=== PATIENT | female | born 1985 | race African-American/Black ===

== ENCOUNTER 2016-04-06 18:25 | Emergency (ER) | payer OTHER ==
[~2016-04-06] VITALS: Ht 175.3 cm; Wt 105.9 kg
[~2016-04-06 18:25] MED LIST: BCPILLS PO; ONDA4TAB10 SL; PRVHFAIN INH
[2016-04-06 18:34] VITALS: TEMP 37; Ht 175.3 cm; Wt 105.9 kg
--- NOTE | 2016-04-06 19:21 | DIAGNOSTIC IMAGING REPORT ---
CT HEAD WITHOUT CONTRAST (CT) CLINICAL HISTORY: Headache status post head trauma COMPARISON STUDY: No previous studies for comparison. TECHNIQUE: Axial CT of the brain is performed from the vertex to the skull base. IV contrast was not administered for this examination. CT DOSE: 687.98 mGy.cm FINDINGS: No intra or extra-axial mass lesions are visualized. There is no CT evidence of acute cortical infarction. There is no evidence of midline shift. There is no acute hemorrhage. No calvarial fractures are visualized. There is no evidence of pathologic ventricular dilatation. There is no evidence of acute sinusitis IMPRESSION: Normal noncontrast head CT. Electronically signed by: Manav Harley M.D. 04/06/2016 7:19 PM Dictated Date/Time: 04/06/2016 7:18 PM
[2016-04-06 19:28] VITALS: BP 137/86; PULSE 75; O2SAT 95
--- NOTE | 2016-04-06 19:29 | EMERGENCY ROOM VISIT NOTE ---
History First contact with patient: 18:38 Chief Complaint: HEAD INJURY (MINOR) Stated Complaint: DIZZY, NAUSEA, HEADACHE History of Present Illness The patient is a 31 year old female who presents to the Emergency Room with complaints of head injury which occurred yesterday when she was participating in [employer]. She states that her legs went out from underneath her and she fell backwards striking her head on the floor. She states that she hit so hard that she bounced up and then her head went back and hit again. She was wearing a helmet. There was no loss of consciousness or short-term memory loss. The patient states that she did not even feel any pain in the area initially. Approximately 1 hour later she started feeling "woozy". She also started getting a slight headache at the base of her head. She also admits to photosensitivity and phono sensitivity. The patient is concerned because when she woke up today she continues to have a slight headache which she rates at a 2 or 3 out of 10. She also feels slightly off balance but the main concern is that she feels nauseated but did not vomit. The patient denies any prior head injuries. The patient denies any neck injury. Review of Systems 10 system review was performed and was negative unless stated otherwise history of present illness. Past Medical/Surgical History Surgical Problems: (1) S/P appendectomy Umbilical hernia Asthma Family History Cancer Diabetes mellitus Hypertension Social History Smoking Status: Never Smoker Alcohol Use: occasionally Marital Status: single Occupation Status: employed Current/Historical Medications Scheduled Control Pills ( Control Pills), 1 TAB PO DAILY Ondasetron Odt (Zofran Odt), 4-8 MG SL Q6H Scheduled PRN Albuterol (Ventolin Hfa), 2 PUFF INH Q6H PRN for Shortness of Breath Allergies Coded Allergies: No Known Allergies (Unverified , 04/06/16) Physical Exam Vital Signs Date Time Temp Pulse Resp B/P Pulse Ox O2 Delivery O2 Flow Rate FiO2 04/06/16 18:34 37.0 77 18 142/72 98 Room Air Physical Exam GENERAL: 31-year-old female appears in no acute distress. HEAD: Atraumatic, nontender to palpation EYES: PERRLA. EOMs intact. EARS: Canals clear. TMs without hemotympanum NECK: Supple, no lymphadenopathy noted. No carotid bruits noted. LUNGS: Clear auscultation without wheezes rales or rhonchi. CARDIAC: Regular rate and rhythm without murmur. Pulses is full and equal throughout. CERVICAL SPINE: No gross bony deformity noted. The patient is nontender to palpation over the spinous processes. She has slight tenderness palpation over the left paravertebral region. Right side nontender. Full range of motion. NEURO:Cranial nerves two through 12 intact. Cerebellar function intact with [id number]. Fine motor intact with alternating finger motions. Medical Decision & Procedures ER Provider Diagnostic Interpretation: CT HEAD WITHOUT CONTRAST (CT) CLINICAL HISTORY: Headache status post head trauma COMPARISON STUDY: No previous studies for comparison. TECHNIQUE: Axial CT of the brain is performed from the vertex to the skull base. IV contrast was not administered for this examination. CT DOSE: 687.98 mGy.cm FINDINGS: No intra or extra-axial mass lesions are visualized. There is no CT evidence of acute cortical infarction. There is no evidence of midline shift. There is no acute hemorrhage. No calvarial fractures are visualized. There is no evidence of pathologic ventricular dilatation. There is no evidence of acute sinusitis IMPRESSION: Normal noncontrast head CT. Electronically signed by: Manav Harley M.D. 04/06/2016 7:19 PM ED Course The patient was evaluated. Urine was negative. CT of the head was ordered and interpreted by the radiologist as above without any acute findings. The patient was informed of the findings. The patient was discharged home in stable condition. Medical Decision Differential diagnosis include concussion, head contusion, intracranial bleed, subarachnoid hemorrhage, skull fracture Impression Primary Impression: Closed head injury Departure Information Dispostion Home / Self-Care Condition GOOD Referrals Chelsi No DO (PCP) Forms HOME CARE DOCUMENTATION FORM, IMPORTANT VISIT INFORMATION Patient Instructions ED Head Injury Closed, [facility] Additional Instructions Read the head injury handout instructions. Any problems return to ER. Tylenol as needed for headache for 72 hours that you can take either Tylenol and/or ibuprofen. Avoid any strenuous physical activity for 1 week after your last symptom resolves. Problem Qualifiers Primary Impression: Closed head injury Encounter type: initial encounter Qualified Codes: S09.90XA - Unspecified injury of head, initial encounter
== END 2016-04-06 19:40 | disposition home or self-care (01) ==
LOC: C.EDB 18:26 → C.EDD 19:40
DX: S09.90XA Unspecified injury of head, initial encounter (principal); W18.00XA Striking against unspecified object with subsequent fall, initial encounter; Y93.51 Activity, roller skating (inline) and skateboarding

== ENCOUNTER 2017-04-16 22:14 | Emergency (ER) | payer OTHER ==
[~2017-04-16] VITALS: Ht 175.8 cm; Wt 110.7 kg
[~2017-04-16 22:14] MED LIST changes: -ONDA4TAB10 SL
[2017-04-16 22:39] VITALS: TEMP 36.7; Ht 175.8 cm; Wt 110.7 kg
[2017-04-16] MEDS ORDERED: IBUPROFEN 800 MG TAB PO STA (23:20)
[2017-04-16] MEDS ORDERED: IBUP-1451 PO (23:23)
--- NOTE | 2017-04-16 23:30 | EMERGENCY ROOM VISIT NOTE ---
History Report prepared by Jamarcus: Yaritza Blas Under the Supervision of: Dr. Aaron Porras M.D. First contact with patient: 23:14 Chief Complaint: FINGER PAIN Stated Complaint: POSSIBLE CRUSHED LEFT FINGERS History of Present Illness The patient is a 32 year old female who presents to the Emergency Room with complaints of persistent left middle finger pain starting [employer]. 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 She was knocked down today and another skater stepped on her left hand with her toe stop and pivoted. She has left middle finger pain which radiates up her arm. She also bumped her left elbow today. She denies any other injury. She does not have any back pain. 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 Review of Systems See HPI for pertinent positives and negatives. A total of ten systems were reviewed and were otherwise negative. Past Medical & Surgical Surgical Problems: (1) S/P appendectomy Family History Cancer Diabetes mellitus Hypertension Social History Smoking Status: Never Smoker Alcohol Use: occasionally Marital Status: single Occupation Status: employed Current/Historical Medications Scheduled Drospirenone-Ethinyl Estradiol (Ursula 28), 1 TAB PO DAILY Scheduled PRN Albuterol (Ventolin Hfa), 2 PUFF INH Q6H PRN for Shortness of Breath Ibuprofen Tab (Motrin), 800 MG PO Q8H PRN for Pain Allergies Coded Allergies: No Known Allergies (Unverified , 04/16/17) Physical Exam Vital Signs Date Time Temp Pulse Resp B/P (MAP) Pulse Ox O2 Delivery O2 Flow Rate FiO2 04/17/17 00:34 90 18 138/84 100 04/16/17 22:39 36.7 98 18 140/91 100 Room Air Physical Exam GENERAL: Awake, alert, uncomfortable-appearing, in no distress HENT: Normocephalic, atraumatic. Oropharynx unremarkable. EYES: Normal conjunctiva. Sclera non-icteric. NECK: Supple. No nuchal rigidity. FROM. No JVD. RESPIRATORY: Clear to auscultation. CARDIAC: Regular rate, normal rhythm. Extremities warm and well perfused. Pulses equal. ABDOMEN: Soft, non-distended. No tenderness to palpation. No rebound or guarding. No masses. RECTAL: Deferred. MUSCULOSKELETAL: Chest examination reveals no tenderness. The back is symmetrical on inspection without obvious abnormality. There is no CVA tenderness to palpation. No joint edema. EXTREMITIES: Marginal edema of the left hand metacarpals extending into the 3rd phalanx. Cap refill intact. No gross deformity. FROM at wrist and elbow without difficulty. Calves are equal size bilaterally and non-tender. No edema. No discoloration. NEURO: Normal sensorium. No sensory or motor deficits noted. SKIN: No rash or jaundice noted. Medical Decision & Procedures ER Provider Diagnostic Interpretation: X-ray: Per my interpretation, radiologist review. Left Hand X-ray: No gross fracture or malalignment. Medications Administered Medications (Trade) Dose Ordered Sig/Dharmesh Route Start Time Stop Time Status Last Admin Dose Admin Ibuprofen (Motrin Tab) 800 mg NOW STAT PO 04/16/17 23:20 04/16/17 23:23 DC 04/16/17 23:44 800 MG ED Course 2315: The patient was evaluated in room C4. A complete history and physical exam was performed. 2330: I reevaluated the patient. Discussed results and discharge instructions: She verbalized understanding and agreement. The patient is ready for discharge. Medical Decision I reviewed the patient's past medical history, medications, and the nursing notes as described above. Differential diagnosis: fracture, dislocation, soft tissue injury. The patient is a 32 y/o woman who presents to the emergency department with left hand, third phalanx pain after hand stepped on by roller skate brake during her competitive roller[place] matches per HPI. On arrival the patient is in NAD, AFVSS. Marginal edema to left hand and 3rd phalanx. No gross deformity. No snuff-box ttp. Wrist FROM, NTTP. No significant edema. Elbow FROM. Plain film , per my preliminary read, without any gross fractures. However, given patient' s pain supplied with wrist and finger splint for comfort. On re-evaluation patient reports parathesias in her left hand and wrist/forearm. I offered patient option for additional plain films however preferred discharge. Given no wrist or forearm ttp, parathesias most likely 2/2 mild edema. Plan for pcp f/u. Findings and plan for follow-up reviewed with patient. Patient agreeable and d/c 'd per discharge instructions. Medication Reconcilliation Current Medication List: was personally reviewed by me Blood Pressure Screening Patient's blood pressure: Elevated blood pressure Blood pressure disposition: Elevated BP felt to be situational Impression Primary Impression: Hand contusion Scribe Attestation The scribe's documentation has been prepared under my direction and personally reviewed by me in its entirety. I confirm that the note above accurately reflects all work, treatment, procedures, and medical decision making performed by me. Departure Information Dispostion Home / Self-Care Prescriptions Ibuprofen Tab (MOTRIN) 800 Mg Tab 800 MG PO Q8H Y for Pain for 7 Days, #21 TAB Prov: Aaron Porras M.D. 04/16/17 Referrals Chelsi No, (PCP) Cornell Bocanegra M.D. Patient Instructions ED Contusion Hand, My [facility] Additional Instructions Please follow up with your primary care physician in the next 1-3 days for re- evaluation or orthopedics (Dr. Bocanegra) if your symptoms do not improve. Preliminary review of your xray did not show a fracture. You likely have a contusion (bruise). If your formal xray read later shows a fracture you will receive a phone call. Otherwise, your exam and xray did not show signs of an emergent condition at this time. Acetaminophen or ibuprofen for pain and fevers as needed. Splint for comfort. Return to the emergency department for worsening symptoms as described in the accompanying instructions.
[2017-04-16] MEDS ORDERED: DROS3TAB12 PO (23:33)
[2017-04-17 00:34] VITALS: BP 138/84; PULSE 90; O2SAT 100
--- NOTE | 2017-04-17 06:32 | DIAGNOSTIC IMAGING REPORT ---
L HAND MIN 3 VIEWS ROUTINE CLINICAL HISTORY: injury trauma. Pain. COMPARISON: None. DISCUSSION: The bones and joint spaces appear intact. There is no evidence of fracture, dislocation or bony disease. There is no evidence for soft tissue swelling. IMPRESSION: Negative study. The above report was generated using voice recognition software. It may contain grammatical, syntax or spelling errors. Electronically signed by: Geovanny Funk M.D. 04/17/2017 6:31 AM Dictated Date/Time: 04/17/2017 6:30 AM
== END 2017-04-17 00:36 | disposition home or self-care (01) ==
LOC: C.EDB 22:15 → C.EDC 04-17 00:36
DX: S60.222A Contusion of left hand, initial encounter (principal); S60.032A Contusion of left middle finger without damage to nail, initial encounter; W23.0XXA Caught, crushed, jammed, or pinched between moving objects, initial encounter; Y93.51 Activity, roller skating (inline) and skateboarding; Z80.9 Family history of malignant neoplasm, unspecified; Z83.3 Family history of diabetes mellitus; Z82.49 Family history of ischemic heart disease and other diseases of the circulatory system

== ENCOUNTER 2017-07-16 22:27 | Emergency (ER) | payer OTHER ==
[~2017-07-16] VITALS: Ht 175.3 cm; Wt 104.0 kg
[~2017-07-16 22:27] MED LIST changes: -BCPILLS PO; +DROS3TAB12 PO
[2017-07-16 22:29] VITALS: TEMP 36.6; Ht 175.3 cm; Wt 104.0 kg
[2017-07-16] MEDS ORDERED: MoRPHine SULFATE 10 MG/ML CARP/VIAL IM STA (22:46)
[2017-07-16] MEDS ORDERED: NURSING VERBAL MED ORDER ONE (23:30)
[2017-07-17] MEDS ORDERED: OXYC-57 PO (00:14)
--- NOTE | 2017-07-17 00:15 | EMERGENCY ROOM VISIT NOTE ---
History Report prepared by Jamarcus: Sulema Ashley Under the Supervision of: Dr. Christiano Greco D.O. 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 The patient reports that she was playing roller derby when she collided with another player. She notes her body went in a different direction when she was hit in the left ankle. She reports swelling to the left ankle. She currently rates her pain a 10/10 in severity. 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 A total of 6 systems reviewed and were otherwise negative. Past Medical & Surgical Surgical Problems: (1) S/P appendectomy Family History Cancer Diabetes mellitus Hypertension Social History Smoking Status: Never Smoker Alcohol Use: occasionally (3/week) Marital Status: single Housing Status: lives with roommate Occupation Status: employed Current/Historical Medications Scheduled Drospirenone-Ethinyl Estradiol (Ursula 28), 1 TAB PO DAILY Scheduled PRN Albuterol (Ventolin Hfa), 2 PUFF INH Q6H PRN for Shortness of Breath Allergies Coded Allergies: Morphine (Verified Allergy, Mild, RASH, 07/16/17) Red rash around IM injection site with itchiness Physical Exam Vital Signs Date Time Temp Pulse Resp B/P (MAP) Pulse Ox O2 Delivery O2 Flow Rate FiO2 07/16/17 22:29 36.6 107 18 143/90 100 Room Air Physical Exam CONSTITUTIONAL/VITAL SIGNS: Reviewed / noted above. GENERAL: Non-toxic in appearance. INTEGUMENTARY: Warm, dry, and Brutus. HEAD: Normocephalic. EYES: without scleral icterus or trauma. RESPIRATORY: Lungs clear and equal. No respiratory distress. CARDIOVASCULAR: Regular rate and rhythm. Normal distal pulses. EXTREMITIES: Warm and well perfused. Diffuse ankle swelling and tenderness to lateral and medial malleolus. NEUROLOGICAL: Intact without focal deficits. PSYCHIATRIC: normal affect. MUSCULOSKELETAL: Normally developed with good muscle tone. Medical Decision & Procedures ER Provider Diagnostic Interpretation: Radiology results as stated below per my review and interpretation: bimalleolar fracture. Medications Administered Medications (Trade) Dose Ordered Sig/Dharmesh Route Start Time Stop Time Status Last Admin Dose Admin Morphine Sulfate (MoRPHine SULFATE INJ) 6 mg NOW STAT IM 07/16/17 22:46 07/16/17 22:47 DC 07/16/17 23:13 6 MG Diphenhydramine HCl (Benadryl Cap) 50 mg STK-MED ONCE .ROUTE 07/16/17 23:22 07/16/17 23:23 DC 07/16/17 23:24 50 MG ED Course 7: Previous medical records were reviewed. The patient was evaluated in room C3. A complete history and physical examination was performed. 2246: Ordered Morphine Sulfate 6 mg IM The patient developed a rash from the Morphine Sulfate and will be given Benadryl. 2322: Ordered Diphenhydramine 50 mg PO 0000: I reassessed the patient at this time. I discussed the results and treatment plan with the patient. I answered all pertaining questions that she had. She expressed understanding and verbalized agreement. The patient will be discharged home. Medical Decision Differential diagnosis: Etiologies such as fracture, dislocation, neurovascular compromise, compartment syndrome, soft tissue injury, as well as others were entertained. This is a 32-year-old female who presents to the ED with a chief complaint of left ankle pain. The patient reports that she was doing roller [employer] when several people fell onto her leg. She complains of pain only in the ankle area. There is no pain in the knee area. She has bilateral malleolar swelling and tenderness on exam. X-ray reveals bimalleolar fractures. The patient was splinted with a sugar tong and posterior splint. She was told the results of the test. She was given IM morphine for discomfort. She did get some erythema from this and was given Benadryl p.o. that helped. The patient was discharged on Percocet. She will follow-up with Dr. Bocanegra, who she has seen in the past. Medication Reconcilliation Current Medication List: was personally reviewed by me Blood Pressure Screening Patient's blood pressure: Elevated blood pressure Blood pressure disposition: Elevated BP felt to be situational Impression Primary Impression: Ankle fracture, bimalleolar, closed Scribe Attestation The scribe's documentation has been prepared under my direction and personally reviewed by me in its entirety. I confirm that the note above accurately reflects all work, treatment, procedures, and medical decision making performed by me. Departure Information Prescriptions Oxycodone/Acetaminophen 5MG/325MG (PERCOCET 5MG/325MG) Tab 1 TAB PO Q6H Y for Pain, #20 TAB Prov: Christiano Greco D.O. 07/17/17 Referrals Chelsi No DO (PCP) Patient Instructions Ankle Fx, My [facility] Additional Instructions Follow-up with your doctor for further care and evaluation in 1-2 days. Return to the emergency department for worsening or new symptoms or any concerns. You have been examined and treated today on an emergency basis only. This is not a substitute for, or an effort to provide, complete comprehensive medical care. It is impossible to recognize and treat all injuries or illnesses in a single emergency department visit. It is therefore important that you follow up closely with your doctor. Call as soon as possible for an appointment. Follow-up with Dr. Bocanegra. Call tomorrow for an appointment. Nonweightbearing to the injured leg. Keep splint clean and dry. Percocet as prescribed. No driving within 6 hours of use. Do not take additional Tylenol while taking Percocet.
[2017-07-17 00:25] VITALS: BP 164/96; PULSE 99; O2SAT 100
--- NOTE | 2017-07-17 06:41 | DIAGNOSTIC IMAGING REPORT ---
L ANKLE MIN 3 VIEWS ROUTINE HISTORY: 32 years-old Female pain fall acute left ankle pain status post fall COMPARISON: None available TECHNIQUE: 3 views of the left ankle FINDINGS: Extensive circumferential soft tissue swelling about the ankle with acute nondisplaced fracture of the medial malleolus. Additionally, there is an acute mildly displaced obliquely oriented fracture of the lateral malleolus with 2 mm posterior displacement. Fracture extends to the level of the talar dome. No definite posterior malleolar fracture identified on these images. Moderate joint effusion. Indeterminate ovoid 8 mm calcification of the distal pretibial tissues. IMPRESSION: Acute bimalleolar fracture without definite posterior malleolar fracture identified. The distal fibular fracture is mildly displaced. The above report was generated using voice recognition software. It may contain grammatical, syntax or spelling errors. Electronically signed by: Dexter Valverde M.D. 07/17/2017 6:40 AM Dictated Date/Time: 07/17/2017 6:37 AM
[2017-07-18] MEDS ORDERED: IBUP-1450 PO (16:53)
== END 2017-07-17 00:25 | disposition home or self-care (01) ==
LOC: C.EDB 22:28 → C.EDC 07-17 00:25
DX: S82.842A Displaced bimalleolar fracture of left lower leg, initial encounter for closed fracture (principal); W03.XXXA Other fall on same level due to collision with another person, initial encounter; Y92.331 Roller skating rink as the place of occurrence of the external cause; Y93.51 Activity, roller skating (inline) and skateboarding; Z79.3 Long term (current) use of hormonal contraceptives; Z88.5 Allergy status to narcotic agent

== ENCOUNTER → 2017-07-17 | Outpatient (CLI) | payer OTHER ==
[~2017-07-17] MED LIST changes: +IBUP-1450 PO; +OXYC-57 PO
== END | disposition home or self-care (01) ==
LOC: C.LABBC 14:23
PROVIDERS: ATTEND Orthopaedic Surgery Orthopaedic Surgery of the Spine
DX: Z01.812 Encounter for preprocedural laboratory examination (principal)

== ENCOUNTER 2017-07-19 13:29 | Observation (INO) | payer OTHER ==
[2017-07-18 16:54] VITALS: BMI 33.0
--- NOTE | 2017-07-18 18:58 | HISTORY & PHYSICAL EXAMINATION ---
DATE OF ADMISSION: 07/19/2017 CHIEF COMPLAINT: Problem with left ankle pain and a fracture of the left ankle bimalleolar. HISTORY OF PRESENT ILLNESS: Leslee is pleasant. She is at 32 years of age. She is a little overweight. She got injured in a sporting activity, suffered acute injury, inversion of the left ankle. She has been posted for elective surgery, open reduction and internal fixation of left ankle. PAST MEDICAL HISTORY: Positive for heart murmur, asthma, abnormal EKG, but no hypertension, COPD, diabetes or blood disorder. Denies liver or kidney issues or carcinoma. SOCIAL HISTORY: Minimal alcohol. No smoking, no illegal drugs. PAST SURGICAL HISTORY: Includes 2 knee surgeries, appendectomy and eustachian tubes surgery. She has also had repair of umbilical hernia. ALLERGIES: She has no allergies. MEDICATIONS: Include an inhaler and control pills along with medication for pain. REVIEW OF SYSTEMS: She denies any blurred vision, double vision, tinnitus, vertigo. No chest pain, palpitations. No asthma, wheezing, shortness of breath. No nausea or vomiting. No urgency or frequency. She has lower extremity difficulties primarily on the left hand side consistent with her ankle fracture. PHYSICAL EXAMINATION: VITAL SIGNS: She is 5 feet 9 inches. She is 230. Blood pressure 120/80, pulse 80. GENERAL: Alert, oriented. Mentation normal. HEENT: Normal. HEART AND LUNGS: Normal. HEART: Normal S1, no S2, no S3. Regular rate and rhythm. LUNGS: Clear to auscultation. No rales, rhonchi or wheezing. ABDOMEN: Soft, nontender. Slightly obese. EXTREMITIES: Left lower extremity is intact. [id number] swelling, no breakage of skin, no warmth or erythema. X-rays demonstrated displaced bimalleolar fracture, left ankle. PLAN: Includes an open reduction and internal fixation of left ankle at [facility] on 07/19/2017.
[2017-07-18 22:15] VITALS: BP 123/78; PULSE 81; TEMP 36.6; O2SAT 100
[~2017-07-19] VITALS: Ht 176.5 cm; Wt 104.5 kg
[~2017-07-19 13:29] MED LIST changes: +CEFAZOLIN 2000MG IV PUSH 15 ML IV SCH; +PATIENT'S HEIGHT AND/OR WEIGHT NEEDED SCH
[2017-07-19 14:09] VITALS: BP 123/62; PULSE 74; TEMP 37.3; O2SAT 96; BMI 33.0
[2017-07-19] MEDS ORDERED: ONDANSETRON INJ 2 MG/ML 2 ML VIAL ONE ×2 (15:46→17:58)
[2017-07-19] MEDS ORDERED: PROPOFOL IV EMULSION 10 MG/ML 20 ML VIAL ONE ×2 (15:46→17:58)
[2017-07-19] MEDS ORDERED: DEXAMETHASONE SOD INJ 4 MG/ML VIAL ONE ×2 (15:46→17:58)
[2017-07-19] MEDS ORDERED: MIDAZOLAM HCL 1 MG/ML 2ML VIAL ONE (15:46)
[2017-07-19] MEDS ORDERED: FENTANYL CITRATE INJ 50 MCG/1 ML 2 ML VIAL ONE ×3 (15:46→17:02)
[2017-07-19] MEDS ORDERED: LIDOCAINE HCL 2% 2 ML VIAL (20MG/ML) ONE ×3 (15:46→17:58)
[2017-07-19] MEDS ORDERED: BUPIVACAINE 0.5 % 5 MG/1 ML PF 10ML VIAL ONE (15:58)
[2017-07-19] MEDS ORDERED: ROPIVACAINE 0.5% 5 MG/ML 30 ML VIAL ONE (15:58)
[2017-07-19] MEDS ORDERED: BUPIVACAINE 0.5 % 5 MG/1 ML MPF 30ML VIAL ONE (15:58)
[2017-07-19] MEDS ORDERED: EpINEphrine HCL INJ 1 MG/ML 1ML SYRINGE ONE (15:59)
--- NOTE | 2017-07-19 16:09 | History & Physical Bridge Note ---
H&P Re-Evaluation Bridge Note: I have examined the patient, reviewed the History & Physical and in the interval since the performance of the History & Physical I have noted the following changes of clinical significance: No changes noted
[2017-07-19] MEDS ORDERED: ATROPINE SULFATE 0.1 MG/ML 5ML SYR IV PRN (16:45)
[2017-07-19] MEDS ORDERED: HYDROmorphone INJ 0.5 MG/0.5 ML SYR IV PRN (16:45)
[2017-07-19] MEDS ORDERED: MEPERIDINE HCL 25 MG/ML CARP IV PRN (16:45)
[2017-07-19] MEDS ORDERED: EpHEDrine SULFATE INJ 50 MG/ML AMP IV PRN (16:45)
[2017-07-19] MEDS ORDERED: ONDANSETRON INJ 2 MG/ML 2 ML VIAL IV PRN (16:45)
--- NOTE | 2017-07-19 18:06 | [facility] Post Operative Brief Note ---
Immediate Operative Summary Operative Date July 19, 2017. Pre-Operative Diagnosis Left ankle bimalleolar fracture Post-Operative Diagnosis Same Procedure(s) Performed Open reduction internal fixation of bimalleolar fracture left ankle Surgeon Dr Sears Director Money Surgeon(s) Rolando Busby PA-C Estimated Blood Loss 10ml Findings Consistent with Post-Op Diagnosis Specimens none per surgeon Anesthesia Type General Regional Complication(s) none
[2017-07-19] MEDS ORDERED: BISACODYL 10 MG SUPP PR PRN (18:15)
[2017-07-19] MEDS ORDERED: MAGNESIUM HYDROXIDE SUSP 30 ML UDC PO PRN (18:15)
[2017-07-19] MEDS ORDERED: IV FLUIDS COMPLETED PRN (18:15)
[2017-07-19] MEDS ORDERED: CEFAZOLIN IV 2,000 MG in DEXTROSE 5% 50ML 50 ML IV SCH (18:15)
[2017-07-19] MEDS ORDERED: OXYCODONE HCL IR 5 MG TAB (IMMEDIATE RELEASE) PO PRN (18:15)
[2017-07-19] MEDS ORDERED: ALBUTEROL HFA 8 GM INHALER INH PRN (18:15)
[2017-07-19] MEDS: FENTANYL CITRATE INJ 50 MCG/1 ML 2 ML VIAL IV PRN ×4 (18:31→18:49)
--- NOTE | 2017-07-19 19:09 | Anesthesiology Progress Note ---
Anesthesia Post Op Note Date & Time July 19, 2017 at 19:09 Vital Signs Pain Intensity: 4 Vital Signs Past 12 Hours Date Time Temp Pulse Resp B/P (MAP) Pulse Ox O2 Delivery O2 Flow Rate FiO2 07/19/17 18:50 36.9 67 16 122/80 98 Nasal Cannula 2 07/19/17 18:40 66 16 127/88 99 Nasal Cannula 2 07/19/17 18:30 71 16 130/85 95 Nasal Cannula 2 07/19/17 18:20 68 16 127/80 100 Oxymask 10 07/19/17 18:10 72 16 128/84 100 Oxymask 10 07/19/17 18:01 36.6 79 16 133/89 100 Oxymask 10 07/19/17 14:09 37.3 74 18 123/62 (82) 96 Room Air Notes Mental Status: alert / awake / arousable, participated in evaluation Pt Amnestic to Procedure: Yes Nausea / Vomiting: adequately controlled Pain: adequately controlled Airway Patency, RR, SpO2: stable & adequate BP & HR: stable & adequate Hydration State: stable & adequate Anesthetic Complications: no major complications apparent
[2017-07-19 19:45] VITALS: BP 123/78; PULSE 81; TEMP 36.6; O2SAT 100
[2017-07-19 20:20] VITALS: BP 136/92; PULSE 77; TEMP 36.7; O2SAT 99
[2017-07-19] MEDS: KETOROLAC TROMETHAMINE 30 MG/ML VIAL IV. SCH (20:34)
[2017-07-19] MEDS: POTASSIUM CHLORIDE INJ 10 MEQ in SODIUM CHLORIDE 0.9% 1000ML 1,000 ML IV SCH (20:35)
[2017-07-19] MEDS: DOCUSATE SODIUM 100 MG CAP PO SCH (20:35)
[2017-07-19] MEDS: ASPIRIN 325 MG ECTAB PO SCH (20:36)
[2017-07-19 20:45] VITALS: Ht 176.5 cm; Wt 104.5 kg
--- NOTE | 2017-07-19 20:46 | DIAGNOSTIC IMAGING REPORT ---
L ANKLE MIN 3 VIEWS ROUTINE HISTORY: 32 years-old Female LT ANKLE ORIF status post ORIF of the left ankle COMPARISON: Left ankle radiographs 07/16/2017 TECHNIQUE: 3 spot fluoroscopic images of the left ankle were obtained utilizing 19.9 seconds fluoroscopy time FINDINGS: Status post placement of lateral plate with 6 fixation screws about the distal fibula. There is a single screw traversing anterior to posterior within the distal fibular metaphysis. Lastly there is an elongated cannulated screw placed within the medial malleolus. There is satisfactory alignment without retained foreign body identified. IMPRESSION: Satisfactory alignment of the acute bimalleolar fracture status post ORIF. The above report was generated using voice recognition software. It may contain grammatical, syntax or spelling errors. Electronically signed by: Dexter Valverde M.D. 07/19/2017 8:45 PM Dictated Date/Time: 07/19/2017 8:43 PM
[2017-07-19 20:53] VITALS: BP 117/74; PULSE 74; TEMP 36.5; O2SAT 99
[2017-07-19 21:43] VITALS: BP 123/79; PULSE 73; TEMP 36.8; O2SAT 99
[2017-07-19] MEDS: ACETAMINOPHEN IV 1,000 MG in EMPTY BAG 0 ML IV SCH (22:06)
[2017-07-19 22:49] VITALS: BP 119/72; PULSE 72; TEMP 36.9; O2SAT 96
[2017-07-20] MEDS: CEFAZOLIN IV 2,000 MG in SYRINGE 0 ML IV SCH ×2 (00:27→07:41)
[2017-07-20] MEDS: KETOROLAC TROMETHAMINE 30 MG/ML VIAL IV. SCH ×2 (01:44→07:41)
[2017-07-20 02:15] VITALS: BP 123/72; PULSE 84; TEMP 36.6; O2SAT 98
[2017-07-20] MEDS: ACETAMINOPHEN IV 1,000 MG in EMPTY BAG 0 ML IV SCH (05:45)
[2017-07-20] MEDS: POTASSIUM CHLORIDE INJ 10 MEQ in SODIUM CHLORIDE 0.9% 1000ML 1,000 ML IV SCH (05:49)
[2017-07-20 07:48] VITALS: BP 122/78; PULSE 68; TEMP 36.7; O2SAT 96
--- NOTE | 2017-07-20 07:57 | OPERATIVE REPORT ---
DATE OF OPERATION: 07/19/2017 PREOPERATIVE DIAGNOSIS: Bimalleolar fracture, left ankle. POSTOPERATIVE DIAGNOSIS: Bimalleolar fracture, left ankle. PROCEDURE: Open reduction internal fixation, left ankle. COMPLICATIONS: Zero. BLOOD LOSS: Less than 10 mL SURGEON: Philipp Saers DO OFFSET PRESSMAN: Rolando Busby PA-C ANESTHETIC: LMA plus a popliteal block. DESCRIPTION OF PROCEDURE: The patient was taken to the operating room, a successful block placed to her popliteal nerve. Successful LMA anesthetic provided to the patient. Tourniquet applied to her left thigh. She was scrubbed with Betadine, scrubbed with alcohol. Prepped with DuraPrep, draped sterile. We inflated the tourniquet. Formal timeout taken. We made a skin incision laterally based over the fibula slightly posterior lateral. We dissected the soft tissue, was a straight [id number] incision. We were to remove some of the periosteum and bring that dorsally and ventrally. We then irrigated thoroughly. We reduced the fibula in anatomic position. An fqoqvyob-[id number]-[id number] lag screw position 22 mm in length using the lag technique. We then placed a 6-hole semitubular plate on the lateral aspect of the fibula, it fits anatomic; 3 cortical screws proximal; 3 cancellous screws distally. The fixation was anatomic and there was no malposition. We then went to the medial side, made skin incision, fascial incision. We were able to engage 1 screw in the medial aspect. It was a completely reduced fracture, I did not want any rotation so I felt 1 screw was appropriate and mortise was reduced. I did not feel syndesmotic screw would gain us too much. We irrigated, closed in layers with 2-0 Vicryl suture and 3-0 nylon. Sterile dressings applied. Splints applied. The patient extubated to PACU stable. No apparent complications. I attest to the content of the Intraoperative Record and any orders documented therein. Any exception s are noted below.
--- NOTE | 2017-07-20 07:57 | Anesthesiology Progress Note ---
Anesthesia Post Op Note Date & Time July 20, 2017 at 07:56 Vital Signs Pain Intensity: 4.0 Vital Signs Past 12 Hours Date Time Temp Pulse Resp B/P (MAP) Pulse Ox O2 Delivery O2 Flow Rate FiO2 07/20/17 07:48 36.7 68 16 122/78 (93) 96 Room Air 07/20/17 02:15 36.6 84 16 123/72 (89) 98 Room Air 07/20/17 00:00 Room Air 07/19/17 22:49 36.9 72 18 119/72 (88) 96 Room Air 07/19/17 21:43 36.8 73 18 123/79 (94) 99 07/19/17 20:53 36.5 74 18 117/74 (88) 99 07/19/17 20:45 Nasal Cannula 07/19/17 20:20 36.7 77 18 136/92 (107) 99 Notes Mental Status: alert / awake / arousable, participated in evaluation Pt Amnestic to Procedure: Yes Nausea / Vomiting: adequately controlled Pain: adequately controlled Airway Patency, RR, SpO2: stable & adequate BP & HR: stable & adequate Hydration State: stable & adequate Neuraxial Anesthesia: sensory block resolved Anesthetic Complications: no major complications apparent
--- NOTE | 2017-07-20 08:01 | Discharge Instructions ---
Discharge Instructions Date of Service July 20, 2017. Admission Reason for Admission: Left Ankle Fracture Discharge Discharge Diagnosis / Problem: same Discharge Goals Goal(s): Improve function Activity Recommendations Activity Limitations: as noted below Exercise/Sports Limitations: until after follow-up appointment Shower/Bathe: keep incision dry . Current Hospital Diet Patient's current hospital diet: Regular Diet Discharge Diet Recommended Diet: Regular Diet Procedures Procedures Performed: Open reduction internal fixation of bimalleolar fracture left ankle Pending Studies Studies pending at discharge: no Medical Emergencies . Who to Call and When: Medical Emergencies: If at any time you feel your situation is an emergency, please call 911 immediately. . Non-Emergent Contact Non-Emergency issues call your: Primary Care Provider . "Provider Documentation" section prepared by Philipp Sears. .
[2017-07-20] MEDS: ASPIRIN 325 MG ECTAB PO SCH (08:52)
[2017-07-20] MEDS: DOCUSATE SODIUM 100 MG CAP PO SCH (08:52)
[2017-07-20] MEDS ORDERED: DROSPIRENONE PO SCH (09:00)
[2017-07-20] MEDS ORDERED: ETHINYL ESTRADIOL PO SCH (09:00)
[2017-07-20 10:37] VITALS: BP 122/78; PULSE 68; TEMP 36.7; O2SAT 96
[2017-07-20] MEDS ORDERED: NURSING VERBAL MED ORDER ONE (11:15)
[2017-07-20] MEDS ORDERED: ONDANSETRON INJ 2 MG/ML 2 ML VIAL IV ONE (11:30)
--- NOTE | 2017-07-25 16:58 | DISCHARGE SUMMARY ---
ADMITTING DIAGNOSIS: Bimalleolar ankle fracture. DISCHARGE DIAGNOSIS: Bimalleolar ankle fracture. She did well up with crutches. Pain controlled after surgical intervention. Discharged home in improved stable condition. Instructions and precautions given to her from the nursing staff and from me. Medication and followup appointment provided. She was placed on [place] for pain along with aspirin to prevent pulmonary embolus.
== END 2017-07-20 12:30 | disposition home or self-care (01) ==
LOC: C.ACU 13:29 → C.MSW 18:09 → ENRESERV 19:19
PROVIDERS: ADMIT Orthopaedic Surgery Orthopaedic Surgery of the Spine; ATTEND Orthopaedic Surgery Orthopaedic Surgery of the Spine
DX: S82.842A Displaced bimalleolar fracture of left lower leg, initial encounter for closed fracture (principal); X50.9XXA Other and unspecified overexertion or strenuous movements or postures, initial encounter; J45.909 Unspecified asthma, uncomplicated; E66.9 Obesity, unspecified; Z90.49 Acquired absence of other specified parts of digestive tract; Z79.3 Long term (current) use of hormonal contraceptives